=== PATIENT | female | born 1965 | race Caucasian/White ===

== ENCOUNTER → 2019-06-18 12:48 | Outpatient (CLI) | payer OTHER, SELFPAY ==
--- NOTE | 2019-06-18 12:52 | DI.RAD.S_ITS ---
PROCEDURE: XR SACRUM COCCYX MIN 2V INDICATIONS: LOW BACK PAIN TECHNIQUE: 3 views of the sacrum and coccyx acquired. COMPARISON: [facility], CR, XR LUMBAR SPINE MIN 4V, 06/18/2019, 12:56. FINDINGS: Bones: No fractures or dislocations. No suspicious bony lesions. Mild focal lower lumbar spine degenerative changes are seen. Soft tissues: Visualized bowel gas pattern is normal. No suspicious soft tissue densities. IMPRESSION: No significant plain film abnormality of the sacrum or coccyx can seen. Dictated by: Norman Russ M.D. on 06/18/2019 at 12:23 Approved by: Norman Russ M.D. on 06/18/2019 at 12:24
--- NOTE | 2019-06-18 12:52 | DI.RAD.S_ITS ---
PROCEDURE: XR LUMBAR SPINE MIN 4V INDICATIONS: LOW BACK PAIN TECHNIQUE: 4 total views of the lumbar spine were acquired, including bilateral oblique views. COMPARISON: [facility], , XR SACRUM COCCYX MIN 2V, 06/18/2019, 12:56. FINDINGS: Bones: 5 nonrib-bearing, lumbar type vertebral bodies are seen. Mild dextroconvex scoliotic curvature is seen. No focal AP alignment abnormality is seen. No acute fractures are seen. Mild loss of disc height is seen at L5-S1. The disc heights otherwise are well preserved. Lower lumbar spine facet arthropathy is seen. There is abnormal sclerosis involving the L3 vertebral body. Soft tissues: Overlying bowel gas pattern is normal. No suspicious soft tissue calcifications. Oblique images: No pars defects. IMPRESSION: Abnormal sclerosis is seen involving the L3 vertebral body. Differential diagnosis includes prior trauma and metastatic disease. Please consider dedicated MRI without and with contrast for further evaluation (assuming that there is no contraindication). Mild focal L5-S1 degenerative change. Dictated by: Norman Russ M.D. on 06/18/2019 at 12:21 Approved by: Norman Russ M.D. on 06/18/2019 at 12:23
== END ==
PROVIDERS: Visit Provider Physician Assistant
DX: M54.5 Low back pain (principal); M47.817 Spondylosis without myelopathy or radiculopathy, lumbosacral region
CPT/HCPCS: 72110; 72220

== ENCOUNTER 2019-07-19 14:30 | Outpatient (RCR) | payer OTHER, SELFPAY ==
--- NOTE | 2019-06-29 12:24 | PT.OIE ---
Current Diagnoses Low back pain (06/28/19) Visit Care Team Role Provider Type Jessica Lerner PA-C Attending Provider Advanced Oem Sales Manager Specialty: Medical Address: [address] [place] [address], [id number] Email: [email or web address] Physical Therapy Initial Evaluation PT-OP-A Visit Information Start: 06/29/19 10:18 Freq: Status: Active Protocol: Document 06/28/19 16:05 (Rec: 06/29/19 10:29 HH [email or web address]) Out-Patient Physical Therapy Visit Information Visit Information Visit Type Initial Evaluation Visit Start Time 16:05 Visit Stop Time 16:45 Total Visit Minutes 40 Visit Number Number of DIRECTOR OF MEDICAL STAFF SERVICES Visits 0 Evaluation Information Evaluation Date 06/28/19 PT-OP-B Current Condition Start: 06/29/19 10:18 Freq: Status: Active Protocol: Document 06/28/19 16:05 (Rec: 06/29/19 10:29 [email or web address]) Current Condition History of Current Condition Onset Date 2 weeks ago Current Complaints Subacute LBP, difficulty in lifting at work History of Current Condition Pt is a 54yo female presents to clinic with subacute LBP started 2 weeks ago. 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 She then felt like severe pain at R sacral region on the following day that causes her being unable to walk or bend over probably. Pt stated lidocaine patch, ibuprofen didnt work for the first few days then she went to see Dr. eLrner and received muscle relaxants. She said her back got a lot better after she took them for 3 days and currently rates herself as 95 % recovered. She decribes her pain seems to get better in standing and walking, but prolonged sitting could make her pain worse. Pt stated she was dx with scoliosis since high school but LBP does not bother her much. Prior Treatments and Tests Pt had x-ray recently and did not show significant damagaes but DJD. Treatment Goals Patient/Caregiver Goals 1. To strengthen her back muscles so she could work without worrying too much 2. To be able to sit for more than an hour without back pain Prior Functional Status Baseline Function- ADL's Independent Baseline Function- Mobility Independent Current Functional Impairments (Reported) Functional Limitations- ADL's unable to sit for more than 30 mins without LBP Functional Limitations- Recreation/ Unable to lift >20 lbs without Hobbies back pain at work. PT-OP-C Subjective Start: 06/29/19 10:18 Freq: Status: Active Protocol: Document 06/28/19 16:05 (Rec: 06/29/19 10:29 [email or web address]) OP-PT Subjective Patient Comments Patient Comments I want to get stronger and fix my back pain. Patient Questionnaires Oswestry Low Back Index Oswestry Score 16 Oswestry Impairment 0% Impaired (Score 0) PT-OP-J Posture/Palpation/Skin Start: 06/29/19 10:18 Freq: Status: Active Protocol: Document 06/28/19 16:05 (Rec: 06/29/19 10:31 [email or web address]) Posture Evaluation Position Standing Evaluation View Posterior T-Spine Posture Fixed Scoliosis on (R), Increased Kyphosis L-Spine Posture Decreased Lordosis Shoulder Posture (R) Elevated Weight Distribution Weight Shifted Right,Decreased Wt.Bear on (L) PT-OP-K Range of Motion Start: 06/29/19 10:18 Freq: Status: Active Protocol: Document 06/28/19 16:05 (Rec: 06/29/19 12:23 [email or web address]) Lumbar Spine Range of Motion Lumbar Spine Active Percentage Testing Position Standing Flexion 20 Extension 40 Rotation Left 20 Rotation Right 20 Lateral Flexion Left 40 Lateral Flexion Right 40 ROM Limitations Soft Tissue Tightness,Muscle Weakness,Pain Comments poor lumbar segmental mobility PT-OP-L Special Tests Start: 06/29/19 10:18 Freq: Status: Active Protocol: Document 06/28/19 16:05 (Rec: 06/29/19 12:23 [email or web address]) Special Tests Lumbar Spine Special Tests PA mob Test Results +VE Comments pain at T2-T7 and L1-S1 Straight Leg Raise Test Results +VE on R Comments R SIJ pain reproduced Prone Instability Test Test Results +VE on R Comments R SIJ pain reduced with hip extension PT-OP-M Strength Start: 06/29/19 10:18 Freq: Status: Active Protocol: Document 06/28/19 16:05 (Rec: 06/29/19 12:23 [email or web address]) Hip Strength Hip Manual Muscle Testing Right Flexion (L2) 4+ Good+ Extension (S1) 4+ Good+ Abduction 4 Good Adduction 4+ Good+ Left Flexion (L2) 5 Normal Extension (S1) 4+ Good+ Abduction 4 Good Adduction 5 Normal PT-OP-Q Treatments Start: 06/29/19 10:18 Freq: Status: Active Protocol: Document 06/28/19 16:05 (Rec: 06/29/19 12:23 [email or web address]) Manual Therapy Treatment Joint Mobilizations sidelying R hip rotational distraction Joint at R SIJ Grade III Body Position Sidelying Reps/Duration 10 secs hold x 5 R hip distraction Direction axial distraction Grade III Body Position Supine Reps/Duration 10 secs hold x 10 PT-OP-T Assessment and Plan Start: 06/29/19 10:18 Freq: Status: Active Protocol: Document 06/28/19 16:05 (Rec: 06/29/19 12:23 [email or web address]) Physical Therapy Assessment Rehab Potential Rehabilitation Potential Excellent Evaluation Complexity Number of Personal Factors/Comorbidities 0 Number of Body Systems Impaired 1-2 Clinical Presentation at Evaluation Stable Impairments Impairments Activity Tolerance,Balance, Functional Activities, Functional Mobility,Pain, Posture,ROM,Sensation,Soft Tissue Mobility,Strength Goals HEP Impairment Pt does not ahve HEP Medical Receptionist Medical Assistant Goal (LTG) Pt will comply to HEP 4x/week to improve her overall strength and mobility. LTG Duration 8 weeks strength Impairment Pt is unable to lift >20 lbs without back pain Short Term Goal (STG) Pt will be able to lift objects >20 lbs with a safe hip hinge squat pattern without pain STG Duration 4 weeks Medical Receptionist Medical Assistant Goal (LTG) Pt will be able to lift objects >30 lbs with a safe hip hinge squat pattern without pain LTG Duration 8 weeks activity tolerance Impairment pt has pain while sitting/ standing > 30 mins Short Term Goal (STG) Pt will have pain <2/ 10 while sitting/ standing >30 mins at work. STG Duration 4 weeks Medical Receptionist Medical Assistant Goal (LTG) Pt will have no pain while sitting/ standing >1 hour at work. LTG Duration 8 weeks Oswestry LbP Impairment Pt scores 16 (1-19% 0 on Oswestry LBP questionnaire. Intermediate Goal (LTG) Pt will score <10 on oswestry LBP questionnaire to improve his quality of life. LTG Duration 8 weeks Assessment Summary Assessment Pt is a low complexity with subacute LBP at R SIJ region. Pt stated she is currently 95% recovered but willing to get stronger so she will not get injured again. Upon assessment , pt presents chronic fixated R thoracic scoliosis with significant limited segmental mobility at lumbar region. +ve findings on special tests : Prone instability, SLR, supine marches which indicates pt's poor trunk stability and strength. Besides, her job nature also requires her to lift and bend over constantly that could place pt for risk of injury. Pt will benefit from skilled therapy for trunk stability training, abdominal strengthening, trunk extensor strengthening, lifting mechanics and overall strengthening. Physical Therapy Plan Frequency and Duration Frequency of Treatment 1x/Week Duration of Treatment 8 weeks Plan of Care Start Date 06/28/19 Plan of Care End Date 08/28/19 Therapeutic Interventions Therapeutic Interventions Balance Training,Gait Training ,Home Exercise Program,Joint Mobilizations,Manual Therapy, Neuromuscular Re-education, Patient/Caregiver Education, Self-Care/Home Management, Sensory Integration,Soft Tissue Mobilization,Taping, Therapeutic Activities, Therapeutic Exercises Modalities Cold Pack/Ice Massage,Electric Stimulation,Hot Packs, Infrared Therapy,Ultrasound Next Visit Focus/Plan Next Note Type Treatment Note Next Visit Plan check pt hip IR and ER trunk rom, cat camel, child pose trunk stability (bird dog ) , abdominal strengthening ( supine marches) as saige
--- NOTE | 2019-07-19 15:51 | PT.OTN ---
Current Diagnoses Low back pain (07/19/19) Physical Therapy Treatment Note PT-OP-A Visit Information Start: 06/29/19 10:18 Freq: Status: Active Protocol: Document 07/19/19 14:35 HH (Rec: 07/19/19 15:51 HH [email or web address]) Out-Patient Physical Therapy Visit Information Visit Information Visit Type Treatment Note Visit Start Time 14:35 Visit Stop Time 15:22 Total Visit Minutes 47 Visit Number 2/45 Number of DIAMOND FINISHING SUPERVISOR Visits 0 PT-OP-B Current Condition Start: 06/29/19 10:18 Freq: Status: Active Protocol: Document 06/28/19 16:05 HH (Rec: 06/29/19 10:29 HH [email or web address]) Current Condition History of Current Condition Onset Date 2 weeks ago Current Complaints Subacute LBP, difficulty in lifting at work History of Current Condition Pt is a 54yo female presents to clinic with subacute LBP started 2 weeks ago. 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 She then felt like severe pain at R sacral region on the following day that causes her being unable to walk or bend over probably. Pt stated lidocaine patch, ibuprofen didnt work for the first few days then she went to see Dr. Lerner and received muscle relaxants. She said her back got a lot better after she took them for 3 days and currently rates herself as 95 % recovered. She decribes her pain seems to get better in standing and walking, but prolonged sitting could make her pain worse. Pt stated she was dx with scoliosis since high school but LBP does not bother her much. Prior Treatments and Tests Pt had x-ray recently and did not show significant damagaes but DJD. Treatment Goals Patient/Caregiver Goals 1. To strengthen her back muscles so she could work without worrying too much 2. To be able to sit for more than an hour without back pain Prior Functional Status Baseline Function- ADL's Independent Baseline Function- Mobility Independent Current Functional Impairments (Reported) Functional Limitations- ADL's unable to sit for more than 30 mins without LBP Functional Limitations- Recreation/ Unable to lift >20 lbs without Hobbies back pain at work. PT-OP-C Subjective Start: 06/29/19 10:18 Freq: Status: Active Protocol: Document 07/19/19 14:35 HH (Rec: 07/19/19 15:51 [email or web address]) OP-PT Subjective Patient Comments Patient Comments I felt good for a few days after my very first visit. But then my back started to get worse once i started working for multiple jobs which involve good amount of lifting . Last week was really bad that both of my back hurts quite a bit. PT-OP-J Posture/Palpation/Skin Start: 06/29/19 10:18 Freq: Status: Active Protocol: Document 06/28/19 16:05 (Rec: 06/29/19 10:31 [email or web address]) Posture Evaluation Position Standing Evaluation View Posterior T-Spine Posture Fixed Scoliosis on (R), Increased Kyphosis L-Spine Posture Decreased Lordosis Shoulder Posture (R) Elevated Weight Distribution Weight Shifted Right,Decreased Wt.Bear on (L) PT-OP-K Range of Motion Start: 06/29/19 10:18 Freq: Status: Active Protocol: Document 06/28/19 16:05 (Rec: 06/29/19 12:23 [email or web address]) Lumbar Spine Range of Motion Lumbar Spine Active Percentage Testing Position Standing Flexion 20 Extension 40 Rotation Left 20 Rotation Right 20 Lateral Flexion Left 40 Lateral Flexion Right 40 ROM Limitations Soft Tissue Tightness,Muscle Weakness,Pain Comments poor lumbar segmental mobility PT-OP-L Special Tests Start: 06/29/19 10:18 Freq: Status: Active Protocol: Document 06/28/19 16:05 (Rec: 06/29/19 12:23 [email or web address]) Special Tests Lumbar Spine Special Tests PA mob Test Results +VE Comments pain at T2-T7 and L1-S1 Straight Leg Raise Test Results +VE on R Comments R SIJ pain reproduced Prone Instability Test Test Results +VE on R Comments R SIJ pain reduced with hip extension PT-OP-M Strength Start: 06/29/19 10:18 Freq: Status: Active Protocol: Document 06/28/19 16:05 (Rec: 06/29/19 12:23 [email or web address]) Hip Strength Hip Manual Muscle Testing Right Flexion (L2) 4+ Good+ Extension (S1) 4+ Good+ Abduction 4 Good Adduction 4+ Good+ Left Flexion (L2) 5 Normal Extension (S1) 4+ Good+ Abduction 4 Good Adduction 5 Normal PT-OP-Q Treatments Start: 06/29/19 10:18 Freq: Status: Active Protocol: Document 07/19/19 14:35 (Rec: 07/19/19 15:51 [email or web address]) Therapeutic Exercises Supine Exercises L hip figure 4 Supine Exercise Name with L hand push on knee inferiorly Side left Reps/Minutes 20 secs hold x 4 Comments cues on hip ER Prone Exercises child pose 2 Prone Exercise Name with L arm cross midline Reps/Minutes 5 x2 Comments cues to facilitate stretch on L lateral line child pose Prone Exercise Name with L arm further out Side bilateral Reps/Minutes 10 x 4 Comments cues to facilitate stretch on L lateral line Standing Exercises standing QL stretch Side left Equipment Used grab bar Reps/Minutes 10 secs hold x5 Manual Therapy Treatment Joint Mobilizations sidelying R hip rotational distraction Joint at R SIJ Grade III Body Position Sidelying Reps/Duration 10 secs hold x 5 R hip distraction Direction axial distraction Grade III Body Position Supine Reps/Duration 10 secs hold x 10 PT-OP-T Assessment and Plan Start: 06/29/19 10:18 Freq: Status: Active Protocol: Document 07/19/19 14:35 (Rec: 07/19/19 15:51 [email or web address]) Physical Therapy Assessment Goals HEP Impairment Pt does not ahve HEP Skilled Nursing Goal (LTG) Pt will comply to HEP 4x/week to improve her overall strength and mobility. LTG Duration 8 weeks strength Impairment Pt is unable to lift >20 lbs without back pain Short Term Goal (STG) Pt will be able to lift objects >20 lbs with a safe hip hinge squat pattern without pain STG Duration 4 weeks Skilled Nursing Goal (LTG) Pt will be able to lift objects >30 lbs with a safe hip hinge squat pattern without pain LTG Duration 8 weeks activity tolerance Impairment pt has pain while sitting/ standing > 30 mins Short Term Goal (STG) Pt will have pain <2/ 10 while sitting/ standing >30 mins at work. STG Duration 4 weeks Hiv Counselor Goal (LTG) Pt will have no pain while sitting/ standing >1 hour at work. LTG Duration 8 weeks Oswestry LbP Impairment Pt scores 16 (1-19% 0 on Oswestry LBP questionnaire. Hiv Counselor Goal (LTG) Pt will score <10 on oswestry LBP questionnaire to improve his quality of life. LTG Duration 8 weeks Assessment Summary Assessment Pt's L hip ER=10, IR =70; R hip ER= 45, IR= 40. Noticeable toe in gait on L side. Educated pt on her current posture. Introduced L lateral line stretch through child pose and L hip figure 4. Pt's spine was able to straighten with child pose (L arm far out ). Pt stated she is not sure if she could cont PT consistently due to her work schedule but will try to manage time to come. Physical Therapy Plan Next Visit Focus/Plan Next Note Type Treatment Note Next Visit Plan reassess her hip and HEP increase her L lateral line flexibility, lat, L hip ER, strengthening R trunk lateral flexors as saige
--- NOTE | 2019-10-31 10:15 | PT.OPDS ---
Current Diagnoses Low back pain (07/19/19) Visit Care Team Role Provider Type Jessica Lerner PA-C Attending Provider Advanced Pig Machine Supervisor Specialty: Medical Address: [address] [place] [address], [facility] Email: [email or web address] Visit Number Visit Number Discharge Summary PT-OP-B Current Condition Start: 06/29/19 10:18 Freq: Status: Active Protocol: Document 06/28/19 16:05 HH (Rec: 06/29/19 10:29 HH [email or web address]) Current Condition History of Current Condition Onset Date 2 weeks ago Current Complaints Subacute LBP, difficulty in lifting at work History of Current Condition Pt is a 54yo female presents to clinic with subacute LBP started 2 weeks ago. 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 She then felt like severe pain at R sacral region on the following day that causes her being unable to walk or bend over probably. Pt stated lidocaine patch, ibuprofen didnt work for the first few days then she went to see Dr. Lerner and received muscle relaxants. She said her back got a lot better after she took them for 3 days and currently rates herself as 95 % recovered. She decribes her pain seems to get better in standing and walking, but prolonged sitting could make her pain worse. Pt stated she was dx with scoliosis since high school but LBP does not bother her much. Prior Treatments and Tests Pt had x-ray recently and did not show significant damagaes but DJD. Treatment Goals Patient/Caregiver Goals 1. To strengthen her back muscles so she could work without worrying too much 2. To be able to sit for more than an hour without back pain Prior Functional Status Baseline Function- ADL's Independent Baseline Function- Mobility Independent Current Functional Impairments (Reported) Functional Limitations- ADL's unable to sit for more than 30 mins without LBP Functional Limitations- Recreation/ Unable to lift >20 lbs without Hobbies back pain at work. PT-OP-C Subjective Start: 06/29/19 10:18 Freq: Status: Active Protocol: Document 07/19/19 14:35 HH (Rec: 07/19/19 15:51 HH [email or web address]) OP-PT Subjective Patient Comments Patient Comments I felt good for a few days after my very first visit. But then my back started to get worse once i started working for multiple jobs which involve good amount of lifting . Last week was really bad that both of my back hurts quite a bit. PT-OP-J Posture/Palpation/Skin Start: 06/29/19 10:18 Freq: Status: Active Protocol: Document 06/28/19 16:05 (Rec: 06/29/19 10:31 [email or web address]) Posture Evaluation Position Standing Evaluation View Posterior T-Spine Posture Fixed Scoliosis on (R), Increased Kyphosis L-Spine Posture Decreased Lordosis Shoulder Posture (R) Elevated Weight Distribution Weight Shifted Right,Decreased Wt.Bear on (L) PT-OP-K Range of Motion Start: 06/29/19 10:18 Freq: Status: Active Protocol: Document 06/28/19 16:05 (Rec: 06/29/19 12:23 [email or web address]) Lumbar Spine Range of Motion Lumbar Spine Active Percentage Testing Position Standing Flexion 20 Extension 40 Rotation Left 20 Rotation Right 20 Lateral Flexion Left 40 Lateral Flexion Right 40 ROM Limitations Soft Tissue Tightness,Muscle Weakness,Pain Comments poor lumbar segmental mobility PT-OP-L Special Tests Start: 06/29/19 10:18 Freq: Status: Active Protocol: Document 06/28/19 16:05 (Rec: 06/29/19 12:23 [email or web address]) Special Tests Lumbar Spine Special Tests PA mob Test Results +VE Comments pain at T2-T7 and L1-S1 Straight Leg Raise Test Results +VE on R Comments R SIJ pain reproduced Prone Instability Test Test Results +VE on R Comments R SIJ pain reduced with hip extension PT-OP-M Strength Start: 06/29/19 10:18 Freq: Status: Active Protocol: Document 06/28/19 16:05 (Rec: 06/29/19 12:23 [email or web address]) Hip Strength Hip Manual Muscle Testing Right Flexion (L2) 4+ Good+ Extension (S1) 4+ Good+ Abduction 4 Good Adduction 4+ Good+ Left Flexion (L2) 5 Normal Extension (S1) 4+ Good+ Abduction 4 Good Adduction 5 Normal PT-OP-T Assessment and Plan Start: 06/29/19 10:18 Freq: Status: Active Protocol: Document 10/31/19 10:14 HH (Rec: 10/31/19 10:15 [email or web address]) Physical Therapy Plan Discharge Physical Therapy Discharge Reasons No Longer Attending PT Discharge Comments Pt stated from last visit that she couldnt cont therapy due to high deductible. D/c from PT today.
== END 2019-07-20 12:41 ==
LOC: PHYS 14:30
PROVIDERS: Visit Provider Physician Assistant
DX: M54.5 Low back pain (principal)
CPT/HCPCS: 97110; 97140; 97161

== ENCOUNTER → 2020-07-15 18:53 | Outpatient (ROUT) | payer OTHER, SELFPAY ==
[2020-07-15 19:16] LABS: Iron 127 ug/dL (37-170)
[2020-07-15 19:25] LABS: Percent Iron Saturation 43 % (15-50); Total Iron Binding Capacity 298 ug/dL (265-497)
[2020-07-15 19:52] LABS: Ferritin 36 ng/mL (11-264)
[2020-07-15 20:22] LABS: Folate > 20.0 ng/mL (2.76-20.0); Vitamin B12 753 pg/mL (239-931)
[2020-07-15 20:56] LABS: HEMOLYSIS < 15 (0-50); Transferrin 240 mg/dL (206-381)
== END ==
PROVIDERS: Visit Provider Internal Medicine
DX: R20.2 Paresthesia of skin (principal); R53.82 Chronic fatigue, unspecified; W57.XXXS Bitten or stung by nonvenomous insect and other nonvenomous arthropods, sequela
CPT/HCPCS: 82607; 82728; 82746; 83540; 83550; 86617